=== PATIENT | female | born 1990 | race Caucasian/White ===

== ENCOUNTER 2018-08-03 06:20 | Emergency (ER) | payer BC, MEDICAID ==
[~2018-08-03] VITALS: Ht 154.9 cm; Wt 66.0 kg
[~2018-08-03 06:20] MED LIST: IBUP800T48 PO; PREN1TAB49
[2018-08-03 06:28] VITALS: BP 133/76; PULSE 113; RESP 18; Ht 154.9 cm; Wt 66.0 kg
[2018-08-03] MEDS ORDERED: ACETAMINOPHEN 500 MG TAB PO STA (06:49)
[2018-08-03] MEDS ORDERED: ACET500C5 PO (09:08)
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
== END 2018-08-03 10:11 | disposition home or self-care (01) ==
LOC: FTE 06:20
DX: S00.03XA Contusion of scalp, initial encounter (principal); Y04.2XXA Assault by strike against or bumped into by another person, initial encounter
CPT/HCPCS: 70450; 70486; 73090; 73630; Z7610